=== PATIENT | female | born 1970 | race Caucasian/White ===

== ENCOUNTER 2019-06-30 21:03 | Emergency (ER) | payer BC, OTHER ==
--- NOTE | 2019-06-30 21:05 | UC ---
Complaint Female HPI - HPI Summary HPI Summary: 49 yo female presents with UTI symptoms. She tells me that earlier today she began to have urinary burning, frequency, and bladder pressure. She feels like she has to urinate, but not much urine comes out. She has had UTIs in the past and states this feels the same. 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 Denies fever, flank pain, abdominal pain, n/v/d/c, vaginal bleeding or discharge. No hematuria. No hx of kidney stones - History Of Current Complaint Stated Complaint: UTI Time Seen by Provider: 06/30/19 21:04 Hx Obtained From: Patient Onset/Duration: Sudden Onset Severity Initially: Mild Severity Currently: Moderate Pain Intensity: 7 Pain Scale Used: 0-10 Numeric - Allergies/Home Medications Allergies/Adverse Reactions: Allergies Allergy/AdvReac Type Severity Reaction Status Date / Time codeine Allergy Vomiting Verified 06/30/19 21:15 Penicillins Allergy Rash Verified 06/30/19 21:15 Sulfa (Sulfonamide Allergy Rash Verified 06/30/19 21:15 Antibiotics) CLAMS/MUSCLES Allergy Rash Uncoded 06/30/19 21:15 Home Medications: Home Medications Albuterol Sulfate [Albuterol Sulfate Hfa] 2 puff INH DAILY PRN 06/30/19 [ History Confirmed 06/30/19] Beclomethasone Dipropionate [Qvar Redihaler] 2 puff INH BID 06/30/19 [History Confirmed 06/30/19] Cyclobenzaprine (NF) [Cyclobenzaprine 5 MG (NF)] 1 - 2 tab PO QPM PRN 06/30/19 [ History Confirmed 06/30/19] Pseudoephedrine HCl [Sudafed 12 Hour] 1 tab PO ONCE PRN 06/30/19 [History Confirmed 06/30/19] Pumpkin Seed Extract/Soy Germ [Azo Bladder Control Capsule] 1 tab PO ONCE PRN [History Confirmed 06/30/19] Valacyclovir HCl [Valacyclovir] 1 tab PO DAILY 06/30/19 [History Confirmed 06/30] PMH/Surg Hx/FS Hx/Imm Hx Respiratory History: Asthma - Surgical History Surgical History: Yes Surgery Procedure, Year, and Place: TUBAL LIGATION. APPENDECTOMY. Rt KNEE ARTHROSCOPIC -2007 - Family History Known Family History: Positive: Non-Contributory - Social History Occupation: Employed Full-time Lives: With Family Alcohol Use: Occasionally Substance Use Type: None Smoking Status (MU): Never Smoked Tobacco Review of Systems All Other Systems Reviewed And Are Negative: No Constitutional: Positive: Negative Skin: Positive: Negative Respiratory: Positive: Negative Cardiovascular: Positive: Negative Genitourinary: Positive: Dysuria, Frequency, Urgency Neurological: Positive: Negative Psychological: Positive: Negative Physical Exam - Summary Physical Exam Summary: GENERAL: NAD. WDWN. No pain distress. SKIN: No rashes, sores, lesions, or open wounds. NECK: Supple. Nontender. No lymphadenopathy. CHEST: CTAB. No r/r/w. No accessory muscle use. Breathing comfortably and in no distress. CV: RRR. Pulses intact. Cap refill <2seconds ABDOMEN: Soft. NTTP. No CVA tenderness. Bowel sounds present NEURO: Alert. PSYCH: Age appropriate behavior. Triage Information Reviewed: Yes Vital Signs: Vital Signs: Temp Pulse Resp BP Pulse Ox 97.9 F 64 18 144/88 98 06/30/19 21:12 06/30/19 21:12 06/30/19 21:12 06/30/19 21:12 06/30/19 21:12 Laboratory Tests 06/30/19 21:14 POC Urine Color Yellow POC Urine Clarity Clear POC Urine pH 7.0 POC Ur Specif [place] <= 1.005 L POC Urine Protein Negative POC Ur Glucose (UA) Negative POC Urine Ketones Negative POC Urine Blood 3+ A POC Urine Nitrite Negative POC Urine Bilirubin Negative POC Urine Urobilinogen 0.2 POC U Leukocyte Esteras 3+ A Vital Signs Reviewed: Yes Complaint Female Dx - Course Course Of Treatment: UA positive as above. Will treat with macrobid and send her urine for culture - Differential Dx/Diagnosis Provider Diagnosis: UTI (urinary tract infection) Discharge ED - Sign-Out/Discharge Documenting (check all that apply): Patient Departure All imaging exams completed and their final reports reviewed: No Studies - Discharge Plan Condition: Stable Disposition: HOME Prescriptions: Nitrofurantoin Monohyd/M-Cryst [Macrobid 100 mg Capsule] 100 mg PO BID #10 cap Phenazopyridine 200 mg (NF) [Pyridium 200 MG tab *] 200 mg PO TID #6 tab Patient Education Materials: Urinary Tract Infection in Women (ED) Referrals: Jazzy Soliman MD [Primary Care Provider] - Additional Instructions: If you develop a fever, shortness of breath, chest pain, new or worsening symptoms - please call your PCP or go to the ED immediately. Your blood pressure was mildly elevated at todays visit. Please see your primary provider within 4 weeks for recheck and re-evaluation. - Billing Disposition and Condition Condition: STABLE Disposition: Home - Attestation Statements Provider Attestation: \This patient was not seen by me. I was available for consult. Chart reviewed. RC
--- OUTSIDE RECORDS SUMMARY | 2019-06-30 21:10 | XMS REPORT | Continuity of Care Document ---
:1970 External Reference #:[id number] Author Name Sherrie Lynn, N.P. (transmitted by agent of provider Bharati Ruvalcaba) Address [address], [address] [place] [id number] Care Team Providers Name Role Phone Bette Cross MD - Internal Care Team Information Carbonizer Tester Medicine Jazzy Soliman MD - Internal Care Team Information Carbonizer Tester Medicine Problems Active Problems Provider Date Insomnia Ferdinand Braswell NP Onset: 01/16/2015 Allergic asthma Ferdinand Braswell NP Onset: 01/16/2015 Allergic rhinitis Celso Kerns NP Onset: 09/18/2016 Social History Type Date Description Comments Sex Unknown ETOH Use Drinks 4 Alcoholic weekends - 1 or 2 Beverages Per Week drinks per day Tobacco Use Start: Unknown End: Patient is a former Quit December 2012, Unknown smoker smoked a pack a weekend, not more Smoking Status Reviewed: 06/05/19 Patient is a former Quit December 2012, smoker smoked a pack a weekend, not more Exercise Exercises regularly Type/Frequency Allergies, Adverse Reactions, Alerts Active Allergies Reaction Severity Comments Date Penicillin 09/19/2013 Sulfa Antibiotics 09/19/2013 Codeine 09/19/2013 Medications Active Medications SIG Qnty Indications Ordering Date Provider Evening Blair Oil 1 cap every day Sherrie Shane, 06/05/2019 500mg N.P. Capsules Cyclobenzaprine HCL 1 - 2 by mouth 60tabs G47.00 Sherrie Varn, 03/31/2019 5mg at bedtime as N.P. Tablets needed Valacyclovir HCL 500 mg by mouth 21tabs Sherrie Varn, 03/10/2019 1gm every day N.P. Tablets Ventolin HFA 2 puffs 4 times 18gm Sherrie Varn, 108(90Base) a day as needed N.P. mcg/Act Aerosol Qvar 2 puff twice a 8.700gm Unknown 80mcg/Act Aerosol day Medications Administered in Office Medication SIG Qnty Indications Ordering Provider Date Depomedrol 80MG Eric Meehan M.D. 09/08/2012 Injection Immunizations CPT Code Status Date Vaccine Lot # [id number] Given 05/25/2018 Influenza Virus Vaccine, Quadrivalent, Split, Preservative Free Vital Signs Date Vital Result Comment 06/05/2019 1:43pm Height 64 inches 5'4" Weight 150.25 lb Heart Rate 63 /min BP Systolic Sitting 130 mmHg BP Diastolic Sitting 72 mmHg Body Temperature 97.7 F O2 % BldC Oximetry 98 % BMI (Body Mass Index) 25.8 kg/m2 03/31/2019 2:03pm Height 64 inches 5'4" Weight 151.00 lb Heart Rate 53 /min BP Systolic Sitting 122 mmHg BP Diastolic Sitting 74 mmHg Body Temperature 97.6 F O2 % BldC Oximetry 97 % BMI (Body Mass Index) 25.9 kg/m2 Results Test Acquired Date Facility Test Result H/L Range Note Urine Culture And 05/31/2019 [facility] Urine SEE RESULT [address] [address] [phone] 1 SEE RESULT BELOW Name: WANDA NATHAN : [address]: Sherrie Lynn STRATEGIC ACCOUNT EXECUTIVE Acct: [id number] Unit: [id number] AGE: 49 Location: [facility] Re05/31/19 SEX: F Status: REG REF SPEC: [id number] LISSA: 05/31/19-[address] [facility] [address]: Sherrie Lynn NP REQ: [id number] RECD: 05/31/197907 STATUS: COMP _ SOURCE: URINE SPDESC: ORDERED: Urine Culture COMMENTS: [id number] Urine Source: Random Procedure Result Reported Site Urine Culture Final 06/01/19- 1422 ML No Growth (<1,000 CFU/mL) * ML - Main Lab . END OF REPORT DEPARTMENT OF PATHOLOGY, [address] [place] [address] Rehan Mclaughlin M.D. Director [facility] # [id number] Procedures Date Code Description Status 06/28/2018 158070651 Diabetic Retinal Eye Exam Completed 05/12/2017 [id number] Mammogram Completed Medical Devices Description No Information Available Encounters Type Date Location Provider Dx Diagnosis Office Visit 03/31/2019 [facility] Internal Sherrie Lnyn, G47.00 Insomnia, 2:00p Medicine - Ccmob N.P. unspecified Assessments Date Code Description Provider 06/05/2019 H81.10 Benign paroxysmal vertigo, unspecified ear Sherrie Lynn N.P. 03/31/2019 G47.00 Insomnia, unspecified Sherrie Lynn, N.P. Plan of Treatment Future Appointment(s):08/04/2019 9:00 am - Valerie Cox MD at [facility] Miaeskwozfd29/13/2020 - Sherrie Lynn N.P.H81.10 Benign paroxysmal vertigo, unspecified earComments:For your vertigo: I advise you to get on your computer and search You Tube for - Dr Fiorella Alexander semi somersault maneuver. Functional Status Description No Information Available Mental Status Description No Information Available Referrals Description No Information Available
[2019-06-30 21:23] VITALS: BP 144/88
[2019-06-30] MEDS ORDERED: Nitrofurantoin Macrocrystals* 50 MG CAP PO ONE (21:23)
[2019-06-30] MEDS ORDERED: Phenazopyridine TAB* 100 MG PO ONE (21:27)
--- NOTE | 2019-07-02 14:59 | UC ---
- Progress Note Progress Note: Urine culture with no growth. Please call pt and if she is feeling better to complete the anbx. If not better needs f/u with PCP or Urology. Course/Dx - Diagnoses Provider Diagnoses: UTI (urinary tract infection) Discharge ED - Sign-Out/Discharge Documenting (check all that apply): Post-Discharge Follow Up All imaging exams completed and their final reports reviewed: No Studies - Discharge Plan Condition: Stable Disposition: HOME Prescriptions: Nitrofurantoin Monohyd/M-Cryst [Macrobid 100 mg Capsule] 100 mg PO BID #10 cap Phenazopyridine 200 mg (NF) [Pyridium 200 MG tab *] 200 mg PO TID #6 tab Patient Education Materials: Urinary Tract Infection in Women (ED) Referrals: Jazzy Soliman MD [Primary Care Provider] - Additional Instructions: If you develop a fever, shortness of breath, chest pain, new or worsening symptoms - please call your PCP or go to the ED immediately. Your blood pressure was mildly elevated at todays visit. Please see your primary provider within 4 weeks for recheck and re-evaluation. - Billing Disposition and Condition Condition: STABLE Disposition: Home
== END 2019-06-30 21:41 | disposition home or self-care (01) ==
LOC: UCEAST 21:03
DX: N39.0 Urinary tract infection, site not specified (principal); J45.909 Unspecified asthma, uncomplicated; Z88.0 Allergy status to penicillin; Z88.5 Allergy status to narcotic agent; Z88.2 Allergy status to sulfonamides; Z91.013 Allergy to seafood; Z79.51 Long term (current) use of inhaled steroids
CPT/HCPCS: 81003; 87086; 99212; A9270-GY; G0463